=== PATIENT | male | born 1955 | race Caucasian/White ===

== ENCOUNTER 2024-03-25 19:23 | Emergency (ER) | payer OTHER, MEDICAID, SELFPAY ==
[2024-03-25 19:24] VITALS: BMI 23.8
[2024-03-25 20:11] VITALS: BP 157/85; PULSE 76; RESP 16; TEMP 36.6; O2SAT 96
--- NOTE | 2024-03-25 20:15 | XR_ITS ---
Examination: Abdomen sonogram, Limited Date and time of exam: March 25, 2024 0826 hrs. Indications: Onset right predominant pain beginning 2 weeks ago, diagnosis chronic hepatitis C 20 years ago, status post cholecystectomy Technique: Real-time springer scale transabdominal sonographic images of the upper abdomen obtained. Findings: Absent gallbladder Normal common bile duct 0.4 cm Pancreatic head 3.5 cm Liver 13.3 cm fatty infiltration no focal liver lesions Normal hepatopedal portal venous flow Patent IVC Impression: Absent gallbladder Normal common bile duct Fatty liver
--- NOTE | 2024-03-25 20:15 | PD.EDRME ---
Rapid Medical Screening Exam [facility] Arrival date/time: 03/25/24 19:23 68 yo m with c/o of right side pain worsen 3 days. I have greeted and performed a focused initial assessment of this patient. A comprehensive ED assessment and evaluation of the patient, analysis of all test results, and completion of the medical decision making process will be conducted by additional ED providers. Chief Complaint: Abdominal Pain Vital signs: Vital Signs Temperature 97.9 F 03/25/24 20:11 Pulse Rate 76 03/25/24 20:11 Respiratory Rate 16 03/25/24 20:11 Blood Pressure 157/85 H 03/25/24 20:11 Pulse Oximetry (%) 96 03/25/24 20:11 Oxygen Delivery Method Room Air 03/25/24 20:11
[2024-03-25 21:15] LABS: Basophils % (Auto) 1 % (0-2.5); Eosinophils # (Auto) 0.2 Thou/mm3 (0.0-0.5); Eosinophils % (Auto) 4 % (0-10); Hematocrit 42.3 % (41.0-53.0); Hemoglobin 14.7 g/dL (13.5-16.0); Immature Granulocytes % (Auto) 0 % (0-0); Immature Granulocytes Auto 0.01 Thou/mm3 (0.00-0.00); Lymphocytes # (Auto) 2.2 Thou/mm3 (1.0-4.8); Lymphocytes % (Auto) 39 % (10-50); Mean Corpuscular HGB Conc 34.8 g/dl (31.0-37.0); Mean Corpuscular Hemoglobin 30.7 pg (25.0-35.0); Mean Corpuscular Volume 88 fL (80-100); Monocytes # (Auto) 0.5 Thou/mm3 (0.0-0.8); Monocytes % (Auto) 10 % (0-12); Neutrophils # (Auto) 2.5 Thou/mm3 (1.8-7.7); Neutrophils % (Auto) 46 % (37-80); Nucleated Red Blood Cell % 0 /100 WBC (0); Platelet Count 167 Thou/mm3 (140-440); RDW Standard Deviation 42.1 fL (35.1-43.9); Red Blood Count 4.79 Miln/mm3 (4.50-5.90); White Blood Count 5.5 Thou/mm3 (3.8-10.6)
[2024-03-25 21:22] LABS: Anion Gap 9 (7-16); BUN/Creatinine Ratio 10 Ratio (12-20); Blood Urea Nitrogen 10 mg/dL (9-23); Carbon Dioxide 26.6 mMol/L (20.0-31.0); Chloride 106 mMol/L (98-107); Sodium 142 mMol/L (136-145)
[2024-03-25 21:23] LABS: Alanine Aminotransferase 43 U/L (10-49); Albumin, Serum 4.6 gm/dL (3.4-4.8); Albumin/Globulin Ratio 1.9 (1.2-2.2); Alkaline Phosphatase 111 U/L (46-116); Aspartate Amino Transferase 36 U/L (0-34); Bilirubin,Total 0.6 mg/dL (0.3-1.2); Calcium 9.8 mg/dL (8.3-10.6); Calcium (Corrected) 9.8 mg/dL (8.5-10.1); Estimated Creatinine Clearance 62.9 mL/min (>60); Globulin 2.4 gm/dL (2.3-3.5); Glucose 140 mg/dL (74-106); Lipase 41 U/L (12-53); Osmolality,Calculated 284 (275-295); eGFR > 60 See Note
--- NOTE | 2024-03-25 23:49 | XR_ITS ---
Examination: CT abdomen with intravenous contrast CT pelvis with intravenous contrast 2-D coronal reconstructions 2-D sagittal reconstructions Date and time of exam:March 26, 2024 0134 hours INDICATIONS: Right lower abdominal pain beginning one month ago, diagnosis chronic hepatitis C. CTDI: vol (mGy) 6.53 DLP: (mGycm) 380 Technique: Multiple axial sections of the abdomen and pelvis have been obtained. 64 slice high-resolution scanner used. 3 mm axial sections have been obtained, post intravenous injection 50 cc [id number] 2-D sagittal, coronal reconstructions obtained. Low dose protocols were performed. One or more of the following dose reduction techniques were used; automated exposure control, adjustment of the mA and/or KV according to patient size, use of iterative reconstruction technique. Findings: Retrocardiac gastric hernia Atelectasis in the left lower lobe and right lower lobe No focal liver or splenic lesion No pancreatic mass Bilateral renal cysts 2 mm lower pole left renal calculus, no hydronephrosis Normal appendix No bowel obstruction Urinary bladder wall thickening up to 5 mm Prostatomegaly 5.1 cm Grade 1 anterolisthesis L4 on L5 IMPRESSION: Nonobstructing left renal calculus, no hydronephrosis or renal calculi Significant prostatomegaly
[2024-03-26 00:59] VITALS: BP 153/90; PULSE 58; RESP 18; TEMP 36.6; O2SAT 95
--- NOTE | 2024-03-26 02:51 | PRELIM_ITS ---
CT scan of the abdomen and pelvis with intravenous contrast (axial sections with sagittal and coronal reformats) March 26, 2024 0134 hoursClinical History: Right lower quadrant/flank pain. Rule out ap pendicitis versus small bowel obstructionComparison: None available at the time of this report.Findin gs:Bilateral lower lobes atelectasis.Nonobstructing left kidney stone. Bilateral renal simple cysts. No hydronephrosis. Status post cholecystectomy. No biliary duct dilation. Liver steatosis. The pancre as, spleen and adrenals are unremarkable.No evidence of bowel obstruction. The appendix is within nor mal limits.There is no mesenteric or retroperitoneal adenopathy.The urinary bladder is nondistended, limited evaluation. There is no free fluid or free air.Degenerative changes of the imaged portions of the spine. No acute fractures. Mild anterolisthesis of L4. Chronic multilevel disc disease.Enlarged prostate.Impression:Liver steatosis.Nonobstructing left nephrolithiasis.Enlarged prostate. Consider correlation with PSA. Report Electronically Signed By: Rd Gill 03/26/2024 2:50:32 AM [EST]
--- NOTE | 2024-03-26 05:27 | PD.EDADULT ---
ED General RME/HPI General Chief complaint: Abdominal Pain Stated complaint: LIVER PAIN Arrival date/time: 03/25/24 19:23 RME / HPI RME / HPI narrative: Chief complaint: 03/25/24 19:23 68 yo m with c/o of right side pain worsen 3 days. HPI: Patient is a 68-year-old male with past medical history of chronic hepatitis C, liver steatohepatitis, insomnia, essential hypertension, GERD and asthma, who came to the ED for persistent right-sided abdominal pain. Patient's pain started about 2-3 days ago and has remained constant, dull and achy in nature. Patient's pain intermittently exacerbates on movement from 4/10 to 10/10 in severity, however subsides on its own within 15 minutes with rest. Patient denies any fevers or chills, or other systemic symptoms at this time. Pain is mostly localized in the right flank, and is mildly radiating to the suprapubic region. In the ED, vitals were within normal limits. Initial laboratory workup was unremarkable. 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 Tobacco?Use:?Denies ETOH?Use:?Denies Drug?Note:?History of polysubstance use, quit > 10 years ago Social?History?Note:?Lives?with?at home with Family history: Patient denies any family history of cancers, sudden cardiac or stroke. Related Data Home Medications ?Medication ?Instructions ?Recorded ?Confirmed lisinopril 20 mg tablet 1 tab PO DAILY 11/28/21 11/28/21 pantoprazole 40 mg tablet,delayed 1 tab PO DAILY 11/28/21 11/28/21 release Previous Rx's ?Medication ?Instructions ?Recorded carbamazepine 200 mg tablet 200 mg PO BID #14 tabs 05/30/20 (Tegretol) albuterol sulfate 90 mcg/actuation 2 inh inhalation Q6H PRN shortness 05/15/21 breath activated powder inhaler of breath or wheezing #1 ea acetaminophen 500 mg tablet 1,000 mg (2 x 500 mg) PO Q6H PRN 03/15/23 (Tylenol Extra Strength) fever or pain #30 tabs lmljegajivdbomq-vgbciklcfahdctp-TF 5 ml PO Q6H PRN congestion/cough 03/15/23 2 mg-30 mg-10 mg/5 mL oral syrup #120 mL (Bromfed DM) tamsulosin 0.4 mg capsule 0.4 mg PO QDAY 1 month #30 caps 03/26/24 Allergies Allergy/AdvReac Type Severity Reaction Status Date / Time aspirin Allergy Severe Swelling Verified 03/25/24 19:26 of Lip/Tongue/Throat vancomycin Allergy Severe Hives Verified 03/25/24 19:26 Review of Systems Review of Systems Narrative Review of Systems: GENERAL: Denies fevers/chills or diaphoresis. HEENT: Denies headache or visual/hearing changes. Denies nasal discharge. NEURO: Denies unusual weakness or difficulty speaking. CARDIO: Denies chest pain or palpitations. PULM: Denies SOB, coughing, or wheezing. GI: RT sided abdominal pain, no N/V/C/D. Reports having BMs URO: Denies burning/itching/pain/urinary changes. MSK/EXT/SKIN: Denies joint/skeletal/muscle pain, issues/changes in upper or lower extremities, itchiness, or superficial pain. PSYCH: Cooperative, pleasant mood & affect. The rest of the review of systems is otherwise negative. ED Exam Narrative Physical exam: Constitutional Alert, oriented x3 and comfortable HEENT Vision grossly intact. Patent nares. Trachea midline. Respiratory Chest normal on inspection and clear to auscultation bilaterally. Cardiovascular S1 and S2 audible, RRR. No murmurs or carotid bruit. No gross JVD. Abdominal Soft and mildly tender to palpation in the RT flank region. BS + Genitourinary No bladder tenderness, no flank pain. Normal to palpation. Musculoskeletal Extremities tone within normal limits. No LE edema. Neurological CN II - XII grossly intact. Extremity motor and sensation grossly intact. Skin Warm, dry and intact. No apparent lesions. Psychiatric Patient has a good affect, is cooperative. Course Course Course Narrative: CT abdo: Impression: Liver steatosis. Nonobstructing left nephrolithiasis. Enlarged prostate. Consider correlation with PSA. Quality Measures none Orders Category Date Time Status CT Screening NOW Care 03/25/24 23:49 Active IV [Insert IV] STAT Care 03/25/24 23:[address] abdomen pelvis w con Stat Exams 03/25/24 23:49 Taken US abdomen limited Stat Exams 03/25/24 20:15 Completed CBC Stat Lab 03/25/24 20:55 Completed CMP [Comprehensive Metabolic Panel] Stat Lab 03/25/24 20:55 Completed Lipase Stat Lab 03/25/24 20:55 Completed Reevaluation(s) Reevaluation #1: 05:34 AM Patient's pain has improved. He is comfortable with going home and pursuing symptomatic management for renal stones. Vital Signs Vital signs: Vital Signs Temperature 97.9 F 03/25/24 20:11 Pulse Rate 76 03/25/24 20:11 Respiratory Rate 16 03/25/24 20:11 Blood Pressure 157/85 H 03/25/24 20:11 Pulse Oximetry (%) 96 03/25/24 20:11 Oxygen Delivery Method Room Air 03/25/24 20:11 MDM Patient data External records reviewed:: None Clinical information provided by:: patient and spouse Social determinants that could affect healthcare access:: substance use Patient has the following chronic illnesses:: chronic hepatitis C, liver steatohepatitis, insomnia, essential hypertension, GERD and asthma How is presenting disease/condition affected by chronic disease/condition?: exacerbated by Evaluation data The following diagnostics were reviewed and interpreted by me:: lab results, radiology exam(s) and EKG tracing(s) Lab and/or radiology exams considered but not ordered:: CT Chest Interpretation Summary: Abdominal pain likely secondary to nephrolithiasis Medications Medications considered but not ordered:: Morphine Medication administrations:: P.o. and IV Consultations Consultation(s) initiated? (list below): No Diagnosis Differential Diagnosis ED Complaint MDM: appendicitis Most likely diagnosis given after review of the tests above:: nephrolithiasis Admission Indicated Admission indicated?: not indicated Explain why admission is indicated or not indicated:: Pain improved in ED Admission Request Was there a request for admission?: No Disposition Plan Disposition Plan: Discharge Discharge Attestation Discharge Attestation: The patient and all family members were given an opportunity to ask questions and understood the discharge instructions. Discharge instructions specifically effects, indications for sooner follow up or return to the emergency department, and the expected course of current diagnosis. Patient condition: Stable Medical Decision Making MDM Narrative MDM Narrative: Patient is a 68 year old male who presented with abdominal pain. Patient was found to have renal stones, and liver steatosis. Discharge plan: - Follow up with PCP within 1 week - Start Tamsulosin daily for BPH (enlarged prostate) - Can take tylenol for pain - Advised oral hydration and cranberry juice, anticipate spontaneous passage of stone - Return to ED if symptoms worsen. Differential Diagnosis Differential Diagnosis: appendicitis Lab Data 03/25/24 20:55 03/25/24 20:55 Labs: Lab Results 03/25/24 Range/Units 20:55 WBC 5.5 (3.8-10.6) Thou/mm3 RBC 4.79 (4.50-5.90) Miln/mm3 Hgb 14.7 (13.5-16.0) g/dL Hct 42.3 (41.0-53.0) % MCV 88 (80-100) fL MCH 30.7 (25.0-35.0) pg MCHC 34.8 (31.0-37.0) g/dl RDW Std Deviation 42.1 (35.1-43.9) fL Plt Count 167 (140-440) Thou/mm3 Neut % (Auto) 46 (37-80) % Lymph % (Auto) 39 (10-50) % [place] % (Auto) 10 (0-12) % Eos % (Auto) 4 (0-10) % Baso % (Auto) 1 (0-2.5) % Neut # (Auto) 2.5 (1.8-7.7) Thou/mm3 Lymph # (Auto) 2.2 (1.0-4.8) Thou/mm3 [place] # (Auto) 0.5 (0.0-0.8) Thou/mm3 Eos # (Auto) 0.2 (0.0-0.5) Thou/mm3 Baso # (Auto) 0.0 (0.0-0.2) Thou/mm3 Immature Gran # (Auto) 0.01 H (0.00-0.00) Thou/mm3 Absolute Nucleated RBC 0.00 (0.00-0.00) Thou/mm3 Immature Gran % 0 (0-0) % Nucleated RBC % 0 (0) /100 WBC Sodium 142 (136-145) mMol/L Potassium 4.0 (3.4-5.1) mMol/L Chloride 106 (98-107) mMol/L Carbon Dioxide 26.6 (20.0-31.0) mMol/L Anion Gap 9 (7-16) BUN 10 (9-23) mg/dL Creatinine 1.0 (0.6-1.3) mg/dL Estim Creat Clear Calc 62.9 (>60) mL/min eGFR > 60 (60 - ) See Note BUN/Creatinine Ratio 10 L (12-20) Ratio Glucose 140 H (74-106) mg/dL Calculated Osmolality 284 (275-295) Calcium 9.8 (8.3-10.6) mg/dL Corrected Calcium 9.8 (8.5-10.1) mg/dL Total Bilirubin 0.6 (0.3-1.2) mg/dL AST 36 H (0-34) U/L ALT 43 (10-49) U/L Alkaline Phosphatase 111 (46-116) U/L Total Protein 7.0 (5.7-8.2) gm/dL Albumin 4.6 (3.4-4.8) gm/dL Globulin 2.4 (2.3-3.5) gm/dL Albumin/Globulin Ratio 1.9 (1.2-2.2) Lipase 41 (12-53) U/L Discharge Plan Plan Patient Disposition: HOME (Self Care) Patient condition on transfer: Stable Prescriptions/Referrals Prescriptions/Med Rec: New tamsulosin 0.4 mg capsule 0.4 mg PO QDAY 30 Days Qty: 30 0RF No Action carbamazepine [Tegretol] 200 mg tablet 200 mg PO BID Qty: 14 0RF albuterol sulfate 90 mcg/actuation aerosol powdr breath activated 2 inh inhalation Q6H PRN (Reason: shortness of breath or wheezing) Qty: 1 0RF pantoprazole 40 mg tablet,delayed release (DR/EC) 1 tab PO DAILY Patient Comments: TAKE 1 TABLET BY MOUTH TWICE A DAY lisinopril 20 mg tablet 1 tab PO DAILY Patient Comments: TAKE 1 TABLET BY MOUTH EVERY DAY acetaminophen [Tylenol Extra Strength] 500 mg tablet 1,000 mg PO Q6H PRN (Reason: fever or pain) Qty: 30 0RF dlsbpqtubqokwqc-vmpxatofh-BQ [Bromfed DM] 2-30-10 mg/5 mL syrup 5 ml PO Q6H PRN (Reason: congestion/cough) Qty: 120 0RF Referrals: No Primary/Family,Physician [Primary Care Provider] - In 1 week Problem List Clinical Impression: Calculus of kidney Patient/Caregiver Discharge Instructions Discharge Activity: resume usual activities Other Activity Instructions:: Discharge plan: - Follow up with PCP within 1 week - Start Tamsulosin daily for BPH (enlarged prostate) - Can take tylenol for pain - Advised oral hydration and cranberry juice, anticipate spontaneous passage of stone - Return to ED if symptoms worsen. Education Materials: ED Kidney Stone w/ Colic Print Language: Bel[place]ian Stand Alone Forms: [employer] Award Info., Patient Portal Info Letter Attestation Attestation I was present during the history and physical exam during the resident workup for this patient. I was available for consult and evaluated the patient. I reviewed her note. I agree with the management.
[2024-03-26 05:50] VITALS: PULSE 60; RESP 18; O2SAT 97
== END 2024-03-26 05:56 | disposition home or self-care (01) ==
PROVIDERS: Physician Assistant; Emergency Provider Emergency Medicine
DX: N20.0 Calculus of kidney (principal); K76.0 Fatty (change of) liver, not elsewhere classified
CPT/HCPCS: 36415; 74177; 76705; 80053; 83690; 85025; 99285; A4649; Q9967